=== PATIENT | male | born 1995 | race Caucasian/White ===

== ENCOUNTER 2025-05-13 08:49 | Outpatient (AMB) | payer BC, SELFPAY ==
--- NOTE | 2025-05-13 08:52 | A.OFFVIS_ITS ---
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 Patient was referred by Urgent care 02/24. At today's visit Patient states that since December he has had upper back pain that radiates into the neck, states no fall/injury's. Patient states that he has tried home exercises and massages but no physical therapy or injections. He added that he does have tingling into the right side of his neck. Biological Aide Required: Yes Biological Aide Services: Biological Aide Present Biological Aide Name: Margo [id number] [place] Allergies No Known Allergies Allergy (Verified 05/13/25 09:00) Medication List - Last Reconciled 05/13/25 by Pari White MD No Known Home Meds HPI Comments Details: Woke up in December with this pain. 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 He went to Urgent Care, xrays done to check neck per patient, says it was at [facility]. I don't have records of this. He was told it was normal. Points to lateral neck and upper trapezius areas. Denies pain to arms but reports tingling on armpit on right side. No numbness on arm or fingers. He had gone for massage therapy and was trying some exercises. Says pain is only when he is moving active, but gets relief as soon as he rests. 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 Patient was appropriately conversant and oriented. Good historian. MSK: Inspection reveals appropriate head and neck positioning. He says pain on upper trapezius bilateral but no trigger points palpated. Cervical ROM was full. Spurling's sign question positive left side? Bilateral shoulder, elbow and wrist ROM WNL. No ligamentous laxity or crepitan ce. No increased effusion. Reported right shoulder pain with right Jara sign. Negative empty can sign. Negative speed's test. Strength is 5/5 in all muscle groups tested. No increased tone noted. Neurological: MMT 5/5 throughout. Question depressed reflexes on left side? Ramires?s negative bilaterally. Babinski was down going bilaterally. Clonus was negative. Gait is non-antalgic without loss of balance. Vital Signs: BMI result Body Mass Index 25.2 Assessment & Plan Assessment & Plan (1) Upper back pain: Code(s): M54.9 - Dorsalgia, unspecified Category: Medical (2) Cervical radiculitis: Code(s): M54.12 - Radiculopathy, cervical region Category: Medical Plan Suspect myofascial pain particularly on upper trapezius. However some minor questionable findings on exam. We will send for repeat x-rays, particularly cervical and shoulder. Referring patient to physical therapy. Assessment and plan discussed with patient, and patient was agreeable. All questions were answered thoroughly. Follow up 2 months or sooner if needed. Pari White MD, DELON Board Certified, [place] [employer] and Rehabilitation (ABPMR) Board Certified, [place] [employer] Electrodiagnostic [employer] (ABEM) Orders: Orders XR shoulder RT min 2V Today M25.519 - Pain in unspecified shoulder PT Evaluation and Treatment Today M54.12 - Radiculopathy, cervical region, M54.9 - Dorsalgia, unspecified XR cervical spine 3V Today M54.2 - Cervicalgia XR shoulder LT min 2V Today M25.512 - Pain in left shoulder Coding Level of Care Code New Pt Level 4 (29504) Diagnoses Upper back pain M54.9 Cervical radiculitis M54.12
[2025-05-13 09:00] VITALS: BMI 25.2
== END 2025-05-13 09:41 | disposition home or self-care (01) ==
LOC: HO.HOS 08:49
PROVIDERS: Visit Provider Physical Medicine & Rehabilitation
DX: M54.9 Dorsalgia, unspecified (principal); M54.12 Radiculopathy, cervical region
CPT/HCPCS: 99203

== ENCOUNTER 2025-05-13 08:49 | Outpatient (REF) | payer BC, SELFPAY ==
--- NOTE | ~2025-05-13 | XR_ITS ---
EXAMINATION: XR CERVICAL SPINE CLINICAL INFORMATION: M54.2 - Cervicalgia COMPARISON: None available. TECHNIQUE: 3 views of the cervical spine were obtained. FINDINGS: There is tear drop shaped calcific density anterior to the dens, just inferior to the anterior C1 ring. The margin of the adjacent dens appears mildly scalloped. There is no soft tissue swelling in the prevertebral space. Vertebral body height and alignment is preserved. Disc spaces are preserved. 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 Electronically signed by: Ba Horne MD 05/13/2025 10:49 AM EDT
--- NOTE | ~2025-05-13 | XR_ITS ---
EXAMINATION: XR SHOULDER, LEFT CLINICAL INFORMATION: M25.512 - Pain in left shoulder COMPARISON: None available. TECHNIQUE: Two views of the left shoulder. FINDINGS: The bones and soft tissues are normal. No fracture. Glenohumeral and acromioclavicular alignment is anatomic with normal joint space. No abnormal soft tissue calcifications. XR/XR shoulder LT min 2V IMPRESSION: Unremarkable left shoulder. Electronically signed by: Ba Horne MD 05/13/2025 10:50 AM EDT
--- NOTE | ~2025-05-13 | XR_ITS ---
EXAMINATION: XR SHOULDER, RIGHT CLINICAL INFORMATION: M25.519 - Pain in unspecified shoulder COMPARISON: None available. TECHNIQUE: Two views of the right shoulder. FINDINGS: The bones and soft tissues are normal. No fracture. Glenohumeral and acromioclavicular alignment is anatomic with normal joint space. No abnormal soft tissue calcifications. XR/XR shoulder RT min 2V IMPRESSION: Unremarkable right shoulder Electronically signed by: Ba Horne MD 05/13/2025 10:46 AM EDT
== END 2025-05-13 08:50 | disposition home or self-care (01) ==
LOC: HO.HOSX 08:49
PROVIDERS: Visit Provider Physical Medicine & Rehabilitation
DX: M54.6 Pain in thoracic spine (principal); M25.512 Pain in left shoulder; M54.12 Radiculopathy, cervical region; M25.511 Pain in right shoulder
CPT/HCPCS: 72040; 73030

== ENCOUNTER → 2025-05-13 09:23 | Outpatient (BNV) | payer BC, SELFPAY | PROVIDERS: Visit Provider Radiology Diagnostic Radiology | DX: M54.2 Cervicalgia (principal); M25.511 Pain in right shoulder; M25.512 Pain in left shoulder | CPT/HCPCS: 72040; 73030 ==

== ENCOUNTER 2025-06-03 09:25 | Outpatient (AMB) | payer BC, SELFPAY ==
--- NOTE | 2025-06-03 09:29 | MHC.OFFVIS ---
Vital Signs 06/03/25 09:38 Height 5 ft 7 in Weight 160 lb BMI 25.1 Intake Visit Reasons: OV-B/L upper back pain Intake Note: Darvin is a 29 year old male who presents today as a follow up for his bilateral upper back pain. At last visit we referred him to physical therapy. At today's visit he states that the upper back pain is the same no changes to report. He states that the tingling pain is still radiating into the bilateral neck, and that for pain is now radiating into the right ear. Patient states that he starts physical therapy on 06/09/25. Embedded Firmware Developer Required: Yes Embedded Firmware Developer Services: Embedded Firmware Developer Present Embedded Firmware Developer Name: [id number]- [place] Allergies No Known Allergies Allergy (Verified 06/03/25 09:39) HPI Comments Details: Woke up in December with this pain. 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 He went to Urgent Care, xrays done to check neck per patient, says it was at [facility]. I don't have records of this. He was told it was normal. Points to lateral neck and upper trapezius areas. Denies pain to arms but reports tingling on armpit on right side. No numbness on arm or fingers. He had gone for massage therapy and was trying some exercises. Says pain is only when he is moving active, but gets relief as soon as he rests. Since the last visit, he reports pain nearly everyday, 5/10. He points to anterior neck, from below the jaw and occipitut, going from top to bottom. Denies radiation to extremities. Denies numbness on extremities but reports tingling in his armpits/under arms. Gait normal. No bladder/bowel incontinence. 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 Patient was appropriately conversant and oriented. Good historian. MSK: Inspection reveals appropriate head and neck positioning. He says pain on upper trapezius bilateral but no trigger points palpated. Cervical ROM was full. Spurling's sign negative. Bilateral shoulder, elbow and wrist ROM WNL. No ligamentous laxity or crepitance. No increased effusion. Negative empty can sign. Negative speed's test. Strength is 5/5 in all muscle groups tested. No increased tone noted. Neurological: MMT 5/5 throughout. Reflexes are intact and symmetric today. Ramires?s negative bilaterally. Babinski was down going bilaterally. Clonus was negative. Gait is non-antalgic without loss of balance. Vital Signs: BMI result Body Mass Index 25.1 Results Reviewed Results Reviewed: Reviewed xray cspine images with patients - findings on C1/dens? Ordering Physician: Pari Hamlin Date of Service: 05/13/25 Procedure(s): XR cervical spine 3V Accession Number(s): [id number] cc: Physician,None ; Pari Hamlin~ Reason for Exam: M54.2 - Cervicalgia EXAMINATION: XR CERVICAL SPINE CLINICAL INFORMATION: M54.2 - Cervicalgia COMPARISON: None available. TECHNIQUE: 3 views of the cervical spine were obtained. FINDINGS: There is tear drop shaped calcific density anterior to the dens, just inferior to the anterior C1 ring. The margin of the adjacent dens appears mildly scalloped. There is no soft tissue swelling in the prevertebral space. Vertebral body height and alignment is preserved. Disc spaces are preserved. 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 Electronically signed by: Ba Horne MD 05/13/2025 10:49 AM EDT Ordering Physician: Pari Hamlin Date of Service: 05/13/25 Procedure(s): XR shoulder RT min 2V Accession Number(s): [id number] cc: Physician,None ; Pari Hamlin~ Reason for Exam: M25.519 - Pain in unspecified shoulder EXAMINATION: XR SHOULDER, RIGHT CLINICAL INFORMATION: M25.519 - Pain in unspecified shoulder COMPARISON: None available. TECHNIQUE: Two views of the right shoulder. FINDINGS: The bones and soft tissues are normal. No fracture. Glenohumeral and acromioclavicular alignment is anatomic with normal joint space. No abnormal soft tissue calcifications. XR/XR shoulder RT min 2V IMPRESSION: Unremarkable right shoulder Electronically signed by: Ba Horne MD 05/13/2025 10:46 AM EDT RP Ordering Physician: Pari Hamlin Date of Service: 05/13/25 Procedure(s): XR shoulder LT min 2V Accession Number(s): [id number] cc: Physician,None ; Pari Hamlin~ Reason for Exam: M25.512 - Pain in left shoulder EXAMINATION: XR SHOULDER, LEFT CLINICAL INFORMATION: M25.512 - Pain in left shoulder COMPARISON: None available. TECHNIQUE: Two views of the left shoulder. FINDINGS: The bones and soft tissues are normal. No fracture. Glenohumeral and acromioclavicular alignment is anatomic with normal joint space. No abnormal soft tissue calcifications. XR/XR shoulder LT min 2V IMPRESSION: Unremarkable left shoulder. Electronically signed by: Ba Horne MD 05/13/2025 10:50 AM EDT RP Assessment & Plan Assessment & Plan (1) Chronic neck pain: Code(s): M54.2 - Cervicalgia; G89.29 - Other chronic pain Category: Medical (2) Abnormal x-ray: Code(s): R93.89 - Abnormal findings on diagnostic imaging of other specified body structures Category: Medical Plan Chronic neck pain, without signs of myelopathy or radiculopathy on exam today. Abnormal findings on cervical x-ray, honestly I am not sure what it means. Patient had undergone adequate conservative management without improvement of condition. It would be reasonable to obtain further imaging such as MRI. An MRI would help rule out any serious condition, guide treatment and assess prognosis for recovery. He is scheduled to start physical therapy next week. Assessment and plan discussed with patient, and patient was agreeable. All questions were answered thoroughly. Pari White MD, DELON Board Certified, [place] [employer] and Rehabilitation (ABPMR) Board Certified, [place] [employer] Electrodiagnostic [employer] (ABEM) Orders: Orders MR cervical spine wo con Today M54.12 - Radiculopathy, cervical region Coding Level of Care Code Est Pt Level 4 (96714) Diagnoses Chronic neck pain M54.2; G89.29 Abnormal x-ray R93.89
[2025-06-03 09:38] VITALS: BMI 25.1
--- OUTSIDE RECORDS SUMMARY | 2025-06-03 10:21 | XMS_ITS | Clinical Summary ---
Author Organization [facility] Address [address] [place] [address] Care Team Providers Care Welding Setter Name Role Phone Francisco Shavon PEREZ Primary Care Provider [phone] Source Comments PLEASE NOTE, if this patient is a minor, it may be UNLAWFUL to discuss sensitive information that is contained in these records (such as FAMILY PLANNING, MENTAL HEALTH or SUBSTANCE ABUSE) with the minor patient's parent or other person without the patient's specific authorization.[facility] Allergies No known active allergies Medications metoprolol succinate XL (TOPROL-XL) 25 mg 24 hr tablet Take 1 Tablet by mouth once daily for 180 days. 90 Tablet 1 05/26/20 25 026 Active naproxen (NAPROSYN) 500 mg tabletIndicati ons:Sore throat Take 1 Tablet by mouth 2 (two) times daily with a meal. 180 Tablet 02/27/20 25 025 Discontinued methocarbamoL (ROBAXIN) 750 mg tabletIndicati ons:Neck pain Take 1 Tablet by mouth every evening. 30 Tablet 04/16/20 25 025 Discontinued methocarbamoL (ROBAXIN) 750 mg tabletIndicati ons:Neck pain TAKE 1 TABLET BY MOUTH EVERY DAY IN THE EVENING 30 Tablet 05/13/20 25 025 Discontinued( erapy completed/Not needed) naproxen (NAPROSYN) 500 mg tabletIndicati ons:Sore throat TAKE 1 TABLET BY MOUTH TWICE A DAY WITH A MEAL 180 Tablet 05/24/20 25 025 Discontinued( erapy completed/Not needed) Active Problems No known active problems Encounters Date Type Department Care Team Description 05/26/2025 9:20 AM EDT Office Visit [address] [phone] Gilbert Nava MD [facility] 04/16/2025 4:20 PM EDT Office Visit [address] [phone] Child, CARMEN Casper Oksana 04/05/2025 1:00 PM EDT Office Visit [address] [phone] ChildTremayne PA-C from Last 3 Months Social History Tobacco Use Types Packs/Day Years Used Date Smoking Tobacco: Never Passive Smoke Exposure: Never Smokeless Tobacco: Never Tobacco Cessation:Counseling Given: Not Answered Alcohol Use Standard Drinks/Week Comments Never 0 (1 standard drink = 0.6 oz pur e alcohol) Sex and Gender Information Value Date Recorded Sex Assigned at Male 12/06/2024 9:59 PM PDT Legal Sex Male 11:15 AM PDT Gender Identity Male 12/06/2024 9:59 PM PDT Sexual Orientation Straight 12/06/2024 9: 59 PM PDT Last Filed Vital Signs Vital Sign Reading Time Taken Comments Blood Pressure 104/70 05/26/2025 9:29 AM EDT Pulse 63 05/26/2025 9:29 AM EDT Temperature 37.1 C (98.8 F) 05/26/2025 9:29 AM EDT Respiratory Rate 12 05/26/2025 9:29 AM EDT Oxygen Saturation 98% 05/26/2025 9:29 AM EDT Inhaled Oxygen Concentration - - Weight 73 kg (161 lb) 05/26/2025 9:29 AM EDT Height 172.7 cm (5' 8 ) 05/26/2025 9:29 AM EDT Body Mass Index 24.48 05/26/2025 9:29 AM EDT Plan of Treatment Upcoming Encounters Date Type Department Care Team (Late st Contact Info) Description 07/14/2025 2:40 PM EST Office Visit [address] [phone] Gilbert Nava MD [address] [place] [address] [place] [address] Health Maintenance Due Date Last Done Comments Imm-DTaP/Tdap/Td (1 - Tdap) 2014 Imm-Hepatitis B (1 of 3 - 19 + 3-dose series) 2014 Imm-HPV (1 - 3-dose SCDM series) 2022 [id number] ( season) 2025 Imm-Influenza (#1) 2025 Annual Wellness (Adult): Ind icated (All Coverage) 11/26/2025 11/26/2024 Anxiety Screening 11/26/2025 11/26/2024 Tobacco Screening 05/26/2026 05/26/2025 Hypertension Screening (#1) 05/25/2028 Alcohol and Drug Screen Completed 11/26/2024 Depression Annual Screen Completed 11/26/2024 HIV Screening Completed 04/05/2025, 11/26/2024 Hepatitis C Screening Completed 04/05/2025, 025 Procedures Procedure Name Priority Date/Time Associated Diagnosis Comments THYROID PANEL WITH TSH Routine 10:13 AM EDT Palpitations HEMOGLOBIN GLYCOSYLATED A1C Routine 04/05/2025 1:49 PM EDT Elevated blood sugar RHEUMATOID FACTOR QUANTITATIVE Routine 04/05/2025 1:46 PM EDT Neck pain Body aches HIV 1/2 AG & AB W/RFLX (4TH GEN) Routine 04/05/2025 1:46 PM EDT Neck pain Body aches ACUTE HEPATITIS PANEL W/RFLX Routine 04/05/2025 1:46 PM EDT Neck pain Body aches C-REACTIVE PROTEIN Routine 04/05/2025 1: 46 PM EDT Neck pain Body aches SEDIMENTATION RATE RBC AUTOMATED Routine 04/05/2025 1:46 PM EDT Neck pain Body aches BLOOD COUNT COMPLETE AUTOMATED Routine 04/05/2025 1:46 PM EDT Neck pain Body aches COMPREHENSIVE METABOLIC PANEL Routine 04/05/2025 1:46 PM EDT Neck pain Body aches from Last 3 Months Results * THYROID PANEL WITH TSH Routine (05/26/2025 10:13 AM EDT) T-3 UPTAKE 32 22 - 35 % 05/27/2025 6:46 PM EDT [facility] T-4 (THYROXINE), TOTAL 6.6 4.9 - 10.5 mcg/dL 05/27/2025 6:46 PM EDT [facility] FREE T4 INDEX (T7) 2.1 1.4 - 3.8 05/27/2025 6:46 PM EDT [facility] TSH 0.72 0.40 - 4.50 mIU/L 05/27/2025 3:26 PM EDT [facility] Blood Blood / Unknown 05/26/2025 1 0:13 AM EDT 05/27/2025 2:24 PM EDT Gilbert Nava MD LAB - BLOOD DRAW Final Result [facility] [address] [place] [id number], [facility] [address] [place] [phone] * HEMOGLOBIN GLYCOSYLATED A1C Routine (04/05/2025 1:49 PM EDT) HEMOGLOBIN A1C 5.3 <5.7 % 04/06/2025 3:07 AM EDT [facility] Blood Blood / Unknown 04/05/2025 1 :49 PM EDT 04/06/2025 1:44 AM EDT Narrative [facility] - 04/06/2025 3:12 AM EDT FASTING:YES For the purpose of screening for the presence of diabetes: . <5.7% Consistent with the absence of diabetes 5.7-6.4% Consistent with increased risk for diabetes (prediabetes) > or =6.5% Consistent with diabetes . This assay result is consistent with a decreased risk of diabetes. . Currently, no consensus exists regarding use of hemoglobin A1c for diagnosis of diabetes in children. . According to [place] [employer] Association (ADA) guidelines, hemoglobin A1c <7.0% represents optimal control in non- diabetic patients. Different metrics may apply to specific patient populations. Standards of Medical Care in Diabetes(ADA). . Justina KEN LAB - BLOOD DRAW Final Result Performing Organization Address [facility] Co de Phone Number [facility] [employer] [address] [address], [facility] [employer] [address] [address] * HIV 1/2 AG & AB W/RFLX (4TH GEN) Routine (04/05/2025 1:46 PM EDT) Pathologist [facility] HIV Screen Final SEE NOTE 04/06/2025 7:27 AM EDT [facility] HIV AG/AB, 4TH GEN NON-REACT CARLOS NON-REACT CARLOS 04/06/2025 7:27 AM EDT [facility] [employer] [facility] Blood Blood / Unknown 04/05/2025 1 :46 PM EDT 04/06/2025 5:53 AM EDT Narrative [employer] - 04/06/2025 7:48 AM EDT FASTING:YES HIV Negative . HIV-1 antigen and HIV-1/HIV-2 antibodies were not detected. There is no laboratory evidence of HIV infection. Tremayne Carpenter PA-C LAB - BLOOD DRAW Final Result Performing Organization Address [facility] Co de Phone Number [facility] [employer] [address] [address], [employer] [address] [address] * ACUTE HEPATITIS PANEL W/RFLX Routine (04/05/2025 1:46 PM EDT) Pathologist [facility] HEPATITIS A IGM ANTIBODY NON-REACT CARLOS NON-REACT CARLOS 04/06/2025 7:27 AM EDT [facility] HEPATITIS B SURFACE ANTIGEN NON-REACT CARLOS NON-REACT CARLOS 04/06/2025 7:27 AM EDT [facility] HEPATITIS B CORE IGM ANTIBODY NON-REACT CARLOS NON-REACT CARLOS 04/06/2025 7:27 AM EDT [facility] HEPATITIS C ANTIBODY NON-REACT CARLOS NON-REACT CARLOS 04/06/2025 7:27 AM EDT [facility] Blood Blood / Unknown 04/05/2025 1 :46 PM EDT 04/06/2025 5:51 AM EDT [email or web address] [facility] - 04/06/2025 7:48 AM EDT FASTING:YES . HCV antibody was non-reactive. There is no laboratory evidence of HCV infection. . In most cases, no further action is required. However, if recent HCV exposure is suspected, a test for HCV RNA (test code 04056) is suggested. . For additional information please refer to http://[employer]/faq/YLG25x7 (This link is being provided for informational/ educational purposes only.) . . For additional information, please refer to http://[employer]/faq/QDA585 (This link is being provided for informational/ educational purposes only.) . us Tremayne Carpenter PA-C LAB - BLOOD DRAW Final Result [facility] [employer] [address] [address], [employer] [address] [address] * RHEUMATOID FACTOR QUANTITATIVE Routine (04/05/2025 1:46 PM EDT) RHEUMATOID FACTOR <10 <14 IU/mL 04/06/2025 9:40 AM EDT [facility] Blood Blood / Unknown 04/05/2025 1 :46 PM EDT 04/06/2025 7:38 AM EDT [email or web address] [facility] - 04/06/2025 9:41 AM EDT FASTING:YES Tremayne Child PA-C LAB - BLOOD DRAW Final Result Performing Organization Address City/[facility]/ZIP Co de Phone Number [employer] [address] [address], [facility] [address] [address] * C-REACTIVE PROTEIN Routine (04/05/2025 1:46 PM EDT) C-REACTIVE PROTEIN <3.0 <8.0 mg/L 04/06/2025 9:40 AM EDT [facility] Blood Blood / Unknown 04/05/2025 1 :46 PM EDT 04/06/2025 7:38 AM EDT [email or web address] [facility] - 04/06/2025 9:41 AM EDT FASTING:YES Tremayne Carpenter PA-C LAB - BLOOD DRAW Final Result Performing Organization Address [facility] Co de Phone Number [employer] [address] [address], [facility] [address] [address] * SEDIMENTATION RATE RBC AUTOMATED Routine (04/05/2025 1:46 PM EDT) Pathologist [facility] SED RATE BY MODIFIED WESTERGREN 2 0 - 15 mm/h 04/06/2025 4:31 AM EDT [facility] Blood Blood / Unknown 04/05/2025 1 :46 PM EDT 04/06/2025 3:30 AM EDT [employer] [facility] - 04/06/2025 4:37 AM EDT FASTING:YES Tremayne Carpenter PA-C LAB - BLOOD DRAW Final Result Performing Organization Address [facility] de Phone Number [employer] [address] [address], [facility] [address] [address] * BLOOD COUNT COMPLETE AUTOMATED Routine (04/05/2025 1:46 PM EDT) Pathologist [facility] WHITE BLOOD CELL COUNT 6.0 3.8 - 10.8 Thousand/u L 04/06/2025 4:16 AM EDT [employer] [facility] RED BLOOD CELL COUNT 4.61 4.20 - 5.80 Million/uL 04/06/2025 4:16 AM EDT [employer] [facility] HEMOGLOBIN 14.1 13.2 - 17.1 g/dL 04/06/2025 4:16 AM EDT [employer] [facility] HEMATOCRIT 43.6 38.5 - 50.0 % 04/06/2025 4:16 AM EDT [employer] [facility] MCV 94.6 80.0 - 100.0 fL 04/06/2025 4:16 AM EDT [employer] [facility] MCH 30.6 27.0 - 33.0 pg 04/06/2025 4:16 AM EDT [facility] MCHC 32.3 32.0 - 36.0 g/dL 04/06/2025 4:16 AM EDT [employer] [facility] RDW 13.1 11.0 - 15.0 % 04/06/2025 4:16 AM EDT [employer] [facility] PLATELET COUNT 208 140 - 400 Thousand/u L 04/06/2025 4:16 AM EDT [employer] [facility] MPV 12.2 7.5 - 12.5 fL 04/06/2025 4:16 AM [employer] [facility] Blood Blood / Unknown 04/05/2025 1 :46 PM EDT 04/06/2025 2:23 AM EDT Narrative [facility] - 04/06/2025 4:27 AM EDT FASTING:YES For adults, a slight decrease in the calculated MCHC value (in the range of 30 to 32 g/dL) is most likely not clinically significant; however, it should be interpreted with caution in correlation with other red cell parameters and the patient's clinical condition. us Tremayne Carpenter PA-C LAB - BLOOD DRAW Final Result [employer] [facility] [address] [address], [facility] [employer] [facility] [address] [place] [address] * COMPREHENSIVE METABOLIC PANEL Routine (04/05/2025 1:46 PM EDT) [facility] GLUCOSE 91 65 - 99 mg/dL 04/06/2025 9:15 AM [facility] UREA NITROGEN (BUN) 24 7 - 25 mg/dL 04/06/2025 9:15 AM [facility] CREATININE (blood) 0.93 0.60 - 1.24 mg/dL 04/06/2025 9:15 AM [facility] EGFR 114 > OR = 60 mL/min/1. 73m2 04/06/2025 9:15 AM [facility] BUN/CREATININE RATIO SEE NOTE: 6 - 22 (calc) 04/06/2025 9:15 AM [facility] SODIUM 140 135 - 146 mmol/L 04/06/2025 9:15 AM [facility] POTASSIUM 4.4 3.5 - 5.3 mmol/L 04/06/2025 9:15 AM [facility] CHLORIDE 103 98 - 110 mmol/L 04/06/2025 9:15 AM [facility] CARBON DIOXIDE 28 20 - 32 mmol/L 04/06/2025 9:15 AM [facility] CALCIUM 9.8 8.6 - 10.3 mg/dL 04/06/2025 9:15 AM [facility] PROTEIN, TOTAL 7.2 6.1 - 8.1 g/dL 04/06/2025 9:15 AM [facility] ALBUMIN 5.0 3.6 - 5.1 g/dL 04/06/2025 9:15 AM [facility] GLOBULIN 2.2 1.9 - 3.7 g/dL (calc) 04/06/2025 9:15 AM [facility] ALBUMIN/GLOBULI N RATIO 2.3 1.0 - 2.5 (calc) 04/06/2025 9:15 AM [facility] BILIRUBIN, TOTAL 0.6 0.2 - 1.2 mg/dL 04/06/2025 9:15 AM [facility] ALKALINE PHOSPHATASE 45 36 - 130 U/L 04/06/2025 9:15 AM [facility] AST 14 10 - 40 U/L 04/06/2025 9:15 AM [employer] ALT 12 9 - 46 U/L 04/06/2025 9:15 AM EDT [facility] [employer] [facility] Blood Blood / Unknown 04/05/2025 1 :46 PM EDT 04/06/2025 7:38 AM EDT Narrative [facility] - 04/06/2025 9:39 AM EDT FASTING:YES . Fasting reference interval . Not Reported: BUN and Creatinine are within reference range. . 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
== END 2025-06-03 10:43 | disposition home or self-care (01) ==
LOC: HO.HOS 09:25
PROVIDERS: PCP Physician Assistant; Visit Provider Physical Medicine & Rehabilitation
DX: M54.2 Cervicalgia (principal); G89.29 Other chronic pain; R93.89 Abnormal findings on diagnostic imaging of other specified body structures
CPT/HCPCS: 99214

== ENCOUNTER → 2025-06-17 19:56 | Outpatient (BNV) | payer BC, SELFPAY | PROVIDERS: Visit Provider Radiology Diagnostic Radiology | DX: M54.12 Radiculopathy, cervical region (principal); M50.30 Other cervical disc degeneration, unspecified cervical region | CPT/HCPCS: 72141 ==

== ENCOUNTER 2025-06-17 19:57 | Outpatient (REF) | payer BC, SELFPAY ==
--- NOTE | ~2025-06-17 | MR_ITS ---
CLINICAL HISTORY: M54.12 - Radiculopathy, cervical region. Evaluate findings on xray on C1 dens MR Cervical Spine WO Contrast COMPARISON: DX/MD/SR - XR CERVICAL SPINE 2-3 VIEWS - 05/13/25 09:23 EDT FINDINGS: No acute fracture. Vertebrae are normally aligned. Normal spinal cord caliber and signal. Unremarkable soft tissues. Soft tissue calcification inferior to the anterior C1 ring seen on plain films is not well visualized on sagittal sequences and is not imaged on axial sequences. C2-C3: Mild disc desiccation. No disc herniation. No significant stenosis. C3-C4: Mild disc desiccation. No disc herniation. No significant stenosis. C4-C5: Disc desiccation and mild disc space narrowing. No disc herniation. No significant stenosis. C5-C6: No disc herniation. No significant stenosis. C6-C7: No disc herniation. No significant stenosis. C7-T1: No disc herniation. No significant stenosis. IMPRESSION: Mild degenerative changes. No spinal cord or nerve root impingement. Calcific density inferior to the anterior C1 ring seen on plain films is not well visualized. This document has been electronically signed by: Fernie Piña MD on 06/17/2025 21:14:37
--- OUTSIDE RECORDS SUMMARY | 2025-06-17 20:00 | XMS_ITS | Clinical Summary ---
Author Organization [facility] Address [address] [place] [address] Care Team Providers Care Swing Frame Grinder Operator Name Role Phone Francisco Shavon PEREZ Primary Care Provider [phone] Source Comments PLEASE NOTE, if this patient [...] Description 05/26/2025 9:20 AM EDT Office Visit [facility] [address] [place] [address] Gilbert Nava MD [place], Diana 04/16/2025 4:20 PM EDT Office Visit [address] [phone] Tremayne Carpenter PA-C JossgenetDebra lara 04/05/2025 1:00 PM EDT Office Visit [address] [phone] Tremayne Carpenter PA-C from Last 3 Months Social History [...] Description 07/14/2025 2:40 PM EST Office Visit [address] [phone] Gilbert Nava MD [address] [place] [address] [place] [address] Health Maintenance Due Date Last Done Comments Imm-DTaP/Tdap/Td (1 - Tdap) 2014 Imm-Hepatitis B (1 of 3 - 19 + 3-dose series) 2014 Imm-HPV (1 - 3-dose SCDM series) 2022 Fxy-KVWCL-53 ( - season) 2025 Imm-Influenza (#1) 2025 Annual Wellness (Adult): Ind icated (All Coverage) 11/26/2025 11/26/2024 Anxiety Screening 11/26/2025 11/26/2024 Tobacco Screening 05/26/2026 05/26/2025 Hypertension Screening (#1) 05/25/2028 Alcohol and Drug Screen Completed 11/26/2024 Depression Annual Screen Completed 11/26/2024 HIV Screening Completed 04/05/2025, 11/26/2024 Hepatitis C Screening Completed 04/05/2025, 025 Procedures Procedure Name Priority Date/Time Associated Diagnosis Comments REFERRAL SCANNED DOCUMENT 06/03/2025 3:00 AM EDT THYROID PANEL WITH TSH Routine 10:13 AM [...] aches from Last 3 Months Results * REFERRAL SCANNED DOCUMENT (06/03/2025 3:00 AM EDT) 06/03/2025 3:00 AM EDT Shavon Singh DAIRY CHEMIST SCAN REFERRAL Final Result * THYROID PANEL WITH TSH Routine (05/26/2025 10:13 AM EDT) T-3 UPTAKE 32 22 - 35 % 05/27/2025 6:46 PM EDT [facility] T-4 (THYROXINE), TOTAL 6.6 4.9 - 10.5 mcg/dL 05/27/2025 6:46 PM EDT [facility] FREE T4 INDEX (T7) 2.1 1.4 - 3.8 05/27/2025 6:46 PM EDT [facility] TSH 0.72 0.40 - 4.50 mIU/L 05/27/2025 3:26 PM EDT [facility] Blood Blood / Unknown 05/26/2025 1 0:13 AM EDT 05/27/2025 2:24 PM EDT Gilbert Nava MD LAB - BLOOD DRAW Final Result [facility] [employer] [address] [place] [address], [facility] [address] [place] [phone] * HEMOGLOBIN GLYCOSYLATED A1C Routine (04/05/2025 1:49 PM EDT) HEMOGLOBIN A1C 5.3 <5.7 % 04/06/2025 3:07 AM EDT [facility] Blood Blood / Unknown 04/05/2025 1 :49 PM EDT 04/06/2025 1:44 AM EDT Narrative [facility] - 04/06/2025 3:12 AM EDT FASTING:YES For [...] of diabetes in children. . According to [place] [employer] (ADA) guidelines, hemoglobin A1c <7.0% represents optimal control in non- diabetic patients. Different metrics may apply to specific patient populations. Standards of Medical Care in Diabetes(ADA). . Justina KEN LAB - BLOOD DRAW Final Result Performing Organization Address [facility] Co de Phone Number [facility] [employer] [address] [place] [address], [employer] [address] [address] * HIV 1/2 AG & AB W/RFLX (4TH GEN) Routine (04/05/2025 1:46 PM EDT) Pathologist [facility] HIV Screen Final SEE NOTE 04/06/2025 7:27 AM EDT [facility] HIV AG/AB, 4TH GEN NON-REACT CARLOS NON-REACT CARLOS 04/06/2025 7:27 AM EDT [facility] Blood Blood / Unknown 04/05/2025 1 :46 PM EDT 04/06/2025 5:53 AM EDT [facility] [employer] [employer] - 04/06/2025 7:48 AM EDT FASTING:YES HIV Negative . HIV-1 antigen and HIV-1/HIV-2 antibodies were not detected. There is no laboratory evidence of HIV infection. Tremayne Carpenter PA-C LAB - BLOOD DRAW Final Result Performing Organization Address [facility] Co de Phone Number [facility] [address] [address], [employer] [address] [address] * ACUTE HEPATITIS PANEL W/RFLX Routine (04/05/2025 1:46 PM EDT) HEPATITIS A IGM ANTIBODY NON-REACT CARLOS NON-REACT CARLOS 04/06/2025 7:27 AM EDT [facility] HEPATITIS B SURFACE ANTIGEN NON-REACT CARLOS NON-REACT CARLOS 04/06/2025 7:27 AM EDT [facility] HEPATITIS B CORE IGM ANTIBODY NON-REACT CARLOS NON-REACT CARLOS 04/06/2025 7:27 AM EDT [facility] HEPATITIS C ANTIBODY NON-REACT CARLOS NON-REACT CARLOS 04/06/2025 7:27 AM EDT [facility] Blood Blood / Unknown 04/05/2025 1 :46 PM EDT 04/06/2025 5:51 AM EDT Narrative [facility] - 04/06/2025 7:48 AM EDT FASTING:YES . HCV antibody was non-reactive. There is no laboratory evidence of HCV infection. . In most cases, no further action is required. However, if recent HCV exposure is suspected, a test for HCV RNA (test code 04922) is suggested. . For additional information please refer to http://education.Zolpy/faq/JNC20m5 (This link is being provided for informational/ educational purposes only.) . . For additional information, please refer to http://Pikimal.Videobot.Sure Chill/faq/RIW586 (This link is being provided for informational/ educational purposes only.) . [facility] PA-C LAB - BLOOD DRAW Final Result [facility] [address] [address], [facility] [address] [address] * RHEUMATOID FACTOR QUANTITATIVE Routine (04/05/2025 1:46 PM EDT) Pathologist [facility] RHEUMATOID FACTOR <10 <14 IU/mL 04/06/2025 9:40 AM EDT [facility] Blood Blood / Unknown 04/05/2025 1 :46 PM EDT 04/06/2025 7:38 AM EDT [facility] - 04/06/2025 9:41 AM EDT FASTING:YES us Casper Child PA-C LAB - BLOOD DRAW Final Result Performing Organization Address [facility]/ZIP Co de Phone Number [facility] [address] [address], [employer] [address] [address] * C-REACTIVE PROTEIN Routine (04/05/2025 1:46 PM EDT) C-REACTIVE PROTEIN <3.0 <8.0 mg/L 04/06/2025 9:40 AM EDT [facility] Blood Blood / Unknown 04/05/2025 1 :46 PM EDT 04/06/2025 7:38 AM EDT [facility] [place] [employer] - 04/06/2025 9:41 AM EDT FASTING:YES Tremayne Carpenter PA-C LAB - BLOOD DRAW Final Result Performing Organization Address [facility]/[place] de Phone Number [facility] [address] [address], [employer] [address] [phone] * SEDIMENTATION RATE RBC AUTOMATED Routine (04/05/2025 1:46 PM EDT) SED RATE BY MODIFIED REJIERGREN 2 0 - 15 mm/h 04/06/2025 4:31 AM EDT [facility] Blood Blood / Unknown 04/05/2025 1 :46 PM EDT 04/06/2025 3:30 AM EDT [facility] - 04/06/2025 4:37 AM EDT FASTING:YES us Tremayne Carpenter PA-C LAB - BLOOD DRAW Final Result Performing Organization Address [facility] de Phone Number [facility] [address] [address], [place] [address] [address] * BLOOD COUNT COMPLETE AUTOMATED Routine (04/05/2025 1:46 PM EDT) WHITE BLOOD CELL COUNT 6.0 3.8 - 10.8 Thousand/u L 04/06/2025 4:16 AM EDT [facility] RED BLOOD CELL COUNT 4.61 4.20 - 5.80 Million/uL 04/06/2025 4:16 AM EDT [facility] HEMOGLOBIN 14.1 13.2 - 17.1 g/dL 04/06/2025 4:16 AM EDT [facility] HEMATOCRIT 43.6 38.5 - 50.0 % 04/06/2025 4:16 AM EDT [facility] MCV 94.6 80.0 - 100.0 fL 04/06/2025 4:16 AM EDT [facility] MCH 30.6 27.0 - 33.0 pg 04/06/2025 4:16 AM EDT [facility] MCHC 32.3 32.0 - 36.0 g/dL 04/06/2025 4:16 AM EDT [facility] RDW 13.1 11.0 - 15.0 % 04/06/2025 4:16 AM EDT [facility] PLATELET COUNT 208 140 - 400 Thousand/u L 04/06/2025 4:16 AM EDT [facility] MPV 12.2 7.5 - 12.5 fL 04/06/2025 4:16 AM IO [employer] [facility] Blood Blood / Unknown 04/05/2025 1 :46 PM EDT 04/06/2025 2:23 AM EDT Narrative [facility] - 04/06/2025 4:27 AM EDT FASTING:YES For adults, a slight decrease in the calculated MCHC value (in the range of 30 to 32 g/dL) is most likely not clinically significant; however, it should be interpreted with caution in correlation with other red cell parameters and the patient's clinical condition. Tremayne Carpenter PA-C LAB - BLOOD DRAW Final Result [facility] [address] [address], [facility] [address] [address] * COMPREHENSIVE METABOLIC PANEL Routine (04/05/2025 1:46 PM EDT) [facility] GLUCOSE 91 65 - 99 mg/dL 04/06/2025 9:15 AM [facility]chut[facility] UREA NITROGEN (BUN) 24 7 - 25 mg/dL 04/06/2025 9:15 AM [facility] CREATININE (blood) 0.93 0.60 - 1.24 mg/dL 04/06/2025 9:15 AM [employer]Webchutney [facility] EGFR 114 > OR = 60 mL/min/1. 73m2 04/06/2025 9:15 AM [facility] BUN/CREATININE RATIO SEE NOTE: 6 - 22 (calc) 04/06/2025 9:15 AM [facility] SODIUM 140 135 - 146 mmol/L 04/06/2025 9:15 AM [facility] POTASSIUM 4.4 3.5 - 5.3 mmol/L 04/06/2025 9:15 AM [facility] CHLORIDE 103 98 - 110 mmol/L 04/06/2025 9:15 AM [facility] CARBON DIOXIDE 28 20 - 32 mmol/L 04/06/2025 9:15 AM [facility] CALCIUM 9.8 8.6 - 10.3 mg/dL 04/06/2025 9:15 AM [facility] PROTEIN, TOTAL 7.2 6.1 - 8.1 g/dL 04/06/2025 9:15 AM [facility] ALBUMIN 5.0 3.6 - 5.1 g/dL 04/06/2025 9:15 AM [facility] GLOBULIN 2.2 1.9 - 3.7 g/dL (calc) 04/06/2025 9:15 AM [facility] ALBUMIN/GLOBULI N RATIO 2.3 1.0 - 2.5 (calc) 04/06/2025 9:15 AM [facility] BILIRUBIN, TOTAL 0.6 0.2 - 1.2 mg/dL 04/06/2025 9:15 AM [facility] ALKALINE PHOSPHATASE 45 36 - 130 U/L 04/06/2025 9:15 AM EDT [facility] AST 14 10 - 40 U/L 04/06/2025 9:15 AM EDT [facility] ALT 12 9 - 46 U/L 04/06/2025 9:15 AM EDT [facility] Blood Blood / Unknown 04/05/2025 1 :46 PM EDT 04/06/2025 7:38 AM EDT Narrative [facility] - 04/06/2025 9:39 AM EDT FASTING:YES . Fasting reference interval . Not Reported: BUN and Creatinine are within reference range. . 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
== END 2025-06-17 19:58 | disposition home or self-care (01) ==
LOC: HO.MRI 19:57
PROVIDERS: Visit Provider Physical Medicine & Rehabilitation
DX: M54.12 Radiculopathy, cervical region (principal)
CPT/HCPCS: 72141

== ENCOUNTER 2025-07-16 09:44 | Outpatient (AMB) | payer BC, SELFPAY ==
--- OUTSIDE RECORDS SUMMARY | 2025-07-14 14:40 | XMS_ITS | Encounter Summary ---
Author Organization [facility] Address [address] [place] [address] Care Team Providers Care Finishing Range Feeder Name Role Phone Shavon Singh CHRIS Primary Care Provider [phone] Reason for Visit * Reason Comments Follow Up Cardiology Encounter Details Date Type Department Care Team ([facility] Contact Info) Description 07/14/2025 2:40 PM EST Office Visit [facility] [address] [phone] Gilbert Nava MD [address] [place] [address] [place] [address] Social History Tobacco Use Types Packs/Day Years [...] Orientation Straight 12/06/2024 9: 59 PM PDT documented as of this encounter Last Filed Vital Signs Vital Sign Reading Time Taken Comments Blood Pressure 120/80 07/14/2025 3:14 PM EST Pulse 84 07/14/2025 3:14 PM EST Temperature 37.2 C (99 F) 07/14/2025 3:14 PM EST Respiratory Rate 16 07/14/2025 3:14 PM EST Oxygen Saturation - - Inhaled Oxygen Concentration - - Weight 75.8 kg (167 lb) 07/14/2025 3:14 PM EST Height 172.7 cm (5' 8 ) 07/14/2025 3:14 PM EST Body Mass Index 25.39 07/14/2025 3:14 PM EST documented in this encounter Progress Notes * Gilbert Nava MD - 07/14/2025 2:40 PM EST Wilfredo Interiano is a 29 year old, Citizen Of [place]-speaking male who presents today for an cardiology visit with Gilbert Nava MD. Referred by CARMEN Santoyo ([place]gian/Citizen [place]) interpreted for today's visit. is present and assisting with interpretation during this in-person visit. HPI: (07/14/2025): Mr. ZUNIGA is doing well. He on his has also started taking Magnesium 250 mg a day and has decreased his metoprolol succinate to every other day and feels significant decrease in palpitations and no longer chest discomfort. He offers no new complaints. (05/26/2025): Mr. ZUNIGA comes for his f/u and continues to have same symptoms. He is not under as muchstress as before. He does admit of feeling more warm compared to other people in his room. No chestpains or presyncope or syncope, or shortness of breath. (01/27/2025): Mr. Darvin Interiano (EFRAIN) is pleasant 29y/o man of Uk[place]ian decent, who has been referred to see me for his cardiac evaluation. He tells me that he has been experiencing irregular heart beat feeling on and off for past 4+ years, lasting for few seconds, with no aggravating or relieving factors. Over the past 4+ years these feelings have slightly increased in frequency from 3-4 times a month to now 8-10 times a month. There is no associated feeling of chest discomfort, lightheadedness, dizziness or syncope or diaphoresis but he does feel that he may be momentarily little short of breath. While in [facility], when he had such feelings, he had echocardiogram done and was reported to be normal. 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 He does not smoke, has much intake of caffeine containing beverages, coffee, tear, alcohol intake. His appetite is good and his bowels agile scrum master normal and so also is his sleep. There is no hx of HTN, DM, smoking, dyslipidemia or family hx of premature CAD. There isno hx of heart murmur, rheumatic fever, enlarged heart. Once we was seen at [facility] in [place] and testing done then was unremarkable. Review of Systems: Denies any fever, chills, rash, cough, bleeding issues, heat or cold intolreance, BRBPR or melena. Past Medical & Surgical History: Not contributory. Allergies: NKA Family History: Not contributory. Medications: Current Outpatient Medications Medication Sig Dispense Refill ??? magnesium oxide 250 mg magnesium tab Take 400 mg by mouth once daily. ??? metoprolol succinate XL (TOPROL-XL) 25 mg 24 hr tablet Take 1 Tablet by mouth every other day for 180 days. 45 Tablet 1 No current facility-administered medications for this visit. Physical Examination: Vitals: 07/14/25 1514 BP: 120/80 BP Site: Left Arm BP Position: Sitting BP Cuff Size: Large Adult Pulse: 84 Resp: 16 Temp: 99 ??F (37.2 ??C) TempSrc: Oral Weight: 167 lb (75.8 kg) Height: 5' 8 (1.727 m) BP 120/80 at 07/14/2025 3:14 PM BP 104/70 at 05/26/2025 9:29 AM BP 136/83 at 04/16/2025 4:19 PM Wt Readings from Last 3 Encounters: 07/14/25 167 lb (75.8 kg) 05/26/25 161 lb (73 kg) 04/16/25 159 lb 3.2 oz (72.2 kg) GENERAL: Patient is awake, alert, fully oriented, and in NAD. HEENT: NC/AT, conjunctiva is pink, sclera is non icteric, neck is supple, trachea is midline, no thyromegaly, no JVD, carotids have good upstroke without bruits. CHEST: Lungs are clear to auscultation. HEART: PMI is not displaced, S1 and S2 are normal, No gallops are present 1/6 CB present along the left sternal border. ABDOMEN: Soft, supple, non tender and no organomegaly appreciated. EXTREMITIES: No edema or cyanosis and 1+ pedal pulses. He did have some fine tremors of both his fingers and hands. The ASCVD Risk score (Margoth YA, et al., 2019) failed to calculate for the following reasons: The 2019 ASCVD risk score is only valid for ages 40 to 79 Estimated Creatinine Clearance: 113.9 mL/min (by C-G formula based on SCr of 0.93 mg/dL). Lab Results Component Value Date HGBA1C 5.3 04/05/2025 Lab Results Component Value Date BUN 24 04/05/2025 CREATININE 0.93 04/05/2025 EGFR 114 04/05/2025 BUNCREAT SEE NOTE: 04/05/2025 NA 140 04/05/2025 K 4.4 04/05/2025 CHLORIDE 103 04/05/2025 CO2 28 04/05/2025 CALCIUM 9.8 04/05/2025 PROTEIN 7.2 04/05/2025 ALBUMIN 5.0 04/05/2025 GLOBULIN 2.2 04/05/2025 BILIRUBIN 0.6 04/05/2025 ALKPHOS 45 04/05/2025 Lab Results Component Value Date WBC 6.0 04/05/2025 RBC 4.61 04/05/2025 HGB 14.1 04/05/2025 HCT 43.6 04/05/2025 MCV 94.6 04/05/2025 MCH 30.6 04/05/2025 MCHC 32.3 04/05/2025 RDW 13.1 04/05/2025 PLATELETS 208 04/05/2025 MPV 12.2 04/05/2025 NEUTROPHILS 3,078 11/26/2024 LYMPHOCYTES 1,017 11/26/2024 MONOCYTES 302 11/26/2024 EOSINOPHILS 72 11/26/2024 BASOPHILS 32 11/26/2024 GLUCOSE 91 04/05/2025 Lab Results Component Value Date TRIGLYC 113 11/26/2024 CHOL 174 11/26/2024 HDL 58 11/26/2024 LDL 95 11/26/2024 CHOLHDL 3.0 11/26/2024 NONHDL 116 11/26/2024 ALT 12 04/05/2025 AST 14 04/05/2025 Lab Results Component Value Date TSH 0.72 05/26/2025 T4 6.6 05/26/2025 ECG: (01/27/2025): SR at 71 bpm and is grossly WNL. ASSESSMENT & PLAN: (07/14/2025): No changes have been made in his meds and he was told to see how he feels off his metoprolol and if he feels well and no longer palpitations bother him, then he can stop taking this. Will see him in 01/2026. (05/26/2025); Have ordered thyroid test to r/o hyperthyroidism and also started him on metoprolol succinate 25mg once a day and will see him in a month. (01/27/2025): Mr. ZUNIGA has symptoms of irregular heart beat intermittently lasting for few seconds with no other significant associated findings. His physical exam from cardiac perspective appears to be grossly WNL. I have suggested him to increase fluid intake, practice meditation, minimize stress in his life and see how he does. I have asked him see me in 3-4 months or sooner if symptoms worsen. documented in this encounter Plan of Treatment Not on file documented as of this encounter Visit Diagnoses Diagnosis Palpitations- Primary documented in this encounter Additional Health Concerns Assessment Noted Time PHQ-9 Depression Total Score: 0 11/27/19 9:40 AM PDT A Depression follow-up plan has been documented for the patient 12/07/2024 12:59 AM PDT PHQ-2 Depression Total Score: 0 11/27/19 9:40 AM PDT documented as of this encounter Care Teams Finishing Range Feeder Relationship Specialty Start Date End Date Shavon Singh FNP [facility] [place] [address] PCP - General Family Medicine, GEOSPATIAL IMAGE ANALYST 05/10/25 documented as of this encounter
--- NOTE | 2025-07-16 09:46 | MHC.OFFVIS ---
Vital Signs 07/16/25 09:49 Height 5 ft 7 in Weight 160 lb BMI 25.1 Intake Visit Reasons: OV-B/L upper back MRI 06/17/25 Intake Note: Darvin is a 29 year old male who presents today as a MRI Review of his bilateral upper back, 06/17/25. Patient states that since last visit he is feeling a little bit better. Fence Installer Helper Required: Yes Fence Installer Helper Services: Fence Installer Helper Present Fence Installer Helper Name: Charly Thao [id number] Allergies No Known Allergies Allergy (Verified 06/03/25 09:39) Medication List - Last Reconciled 07/16/25 by Pari White MD No Known Home Meds HPI Comments Details: Woke up in December with this pain. 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 He went to Urgent Care, xrays done to check neck per patient, says it was at [facility]. I don't have records of this. He was told it was normal. Points to lateral neck and upper trapezius areas. Denies pain to arms but reports tingling on armpit on right side. No numbness on arm or fingers. He had gone for massage therapy and was trying some exercises. Says pain is only when he is moving active, but gets relief as soon as he rests. Since the last visit, pain score 3/10, no pain right now. It appears sometimes only, usually anterior neck, pointing to SCM muscles, sometimes to right ear. Denies posterior neck. Denies radiation to extremities. Denies numbness on extremities but reports tingling in his armpits/under arms. Gait normal. No bladder/bowel incontinence. MRI cspine looks good, no spinal stenosis or disc herniation, no mention of any calcification on the dens. He has discussed this with PCP, thyroid tests and all blood tests were normal per patient. He says no issues of high BP. 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 Patient was appropriately conversant and oriented. Good historian. MSK: Inspection reveals appropriate head and neck positioning. No tenderness in SCM or upper trapezius today. Cervical ROM was full. Spurling's sign negative. Bilateral shoulder, elbow and wrist ROM WNL. No ligamentous laxity or crepitance. No increased effusion. Neurological: MMT 5/5 throughout. Reflexes are intact and symmetric today. Ramires?s negative bilaterally. Babinski was down going bilaterally. Clonus was negative. Gait is non-antalgic without loss of balance. Vital Signs: BMI result Body Mass Index 25.1 Results Reviewed Results Reviewed: Ordering Physician: Pari Hamlin Date of Service: 06/17/25 Procedure(s): MR cervical spine wo con Accession Number(s): [id number] cc: Physician,Unknown ; Pari Hamlin~ Reason for Exam: M54.12 - Radiculopathy, cervical region CLINICAL HISTORY: M54.12 - Radiculopathy, cervical region. Evaluate findings on xray on C1 dens MR Cervical Spine WO Contrast COMPARISON: DX/VA/SR - XR CERVICAL SPINE 2-3 VIEWS - 05/13/25 09:23 EDT FINDINGS: No acute fracture. Vertebrae are normally aligned. Normal spinal cord caliber and signal. Unremarkable soft tissues. Soft tissue calcification inferior to the anterior C1 ring seen on plain films is not well visualized on sagittal sequences and is not imaged on axial sequences. C2-C3: Mild disc desiccation. No disc herniation. No significant stenosis. C3-C4: Mild disc desiccation. No disc herniation. No significant stenosis. C4-C5: Disc desiccation and mild disc space narrowing. No disc herniation. No significant stenosis. C5-C6: No disc herniation. No significant stenosis. C6-C7: No disc herniation. No significant stenosis. C7-T1: No disc herniation. No significant stenosis. IMPRESSION: Mild degenerative changes. No spinal cord or nerve root impingement. Calcific density inferior to the anterior C1 ring seen on plain films is not well visualized. This document has been electronically signed by: Fernie Piña MD on 06/17/2025 21:14:37 Ordering Physician: Pari Hamlin Date of Service: 05/13/25 Procedure(s): XR cervical spine 3V Accession Number(s): [id number] cc: Physician,None ; Pari Hamlin~ Reason for Exam: M54.2 - Cervicalgia EXAMINATION: XR CERVICAL SPINE CLINICAL INFORMATION: M54.2 - Cervicalgia COMPARISON: None available. TECHNIQUE: 3 views of the cervical spine were obtained. FINDINGS: There is tear drop shaped calcific density anterior to the dens, just inferior to the anterior C1 ring. The margin of the adjacent dens appears mildly scalloped. There is no soft tissue swelling in the prevertebral space. Vertebral body height and alignment is preserved. Disc spaces are preserved. 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 Electronically signed by: Ba Horne MD 05/13/2025 10:49 AM EDT Ordering Physician: Pari Hamlin Date of Service: 05/13/25 Procedure(s): XR shoulder RT min 2V Accession Number(s): [id number] cc: Physician,None ; Pari Hamlin~ Reason for Exam: M25.519 - Pain in unspecified shoulder EXAMINATION: XR SHOULDER, RIGHT CLINICAL INFORMATION: M25.519 - Pain in unspecified shoulder COMPARISON: None available. TECHNIQUE: Two views of the right shoulder. FINDINGS: The bones and soft tissues are normal. No fracture. Glenohumeral and acromioclavicular alignment is anatomic with normal joint space. No abnormal soft tissue calcifications. XR/XR shoulder RT min 2V IMPRESSION: Unremarkable right shoulder Electronically signed by: Ba Horne MD 05/13/2025 10:46 AM EDT Ordering Physician: Pari Hamlin Date of Service: 05/13/25 Procedure(s): XR shoulder LT min 2V Accession Number(s): [id number] cc: Physician,None ; Pari Hamlin~ Reason for Exam: M25.512 - Pain in left shoulder EXAMINATION: XR SHOULDER, LEFT CLINICAL INFORMATION: M25.512 - Pain in left shoulder COMPARISON: None available. TECHNIQUE: Two views of the left shoulder. FINDINGS: The bones and soft tissues are normal. No fracture. Glenohumeral and acromioclavicular alignment is anatomic with normal joint space. No abnormal soft tissue calcifications. XR/XR shoulder LT min 2V IMPRESSION: Unremarkable left shoulder. Electronically signed by: Ba Horne MD 05/13/2025 10:50 AM EDT RP Assessment & Plan Assessment & Plan (1) Anterior neck pain: Code(s): M54.2 - Cervicalgia Category: Medical Plan From physiatry point of view, there is no musculoskeletal condition to explain symptoms. Cervical MRI essentially looks good without any significant disc herniation or spinal stenosis. There is no tenderness over upper trapezius or SCM. There is no signs of cervical myelopathy or radiculopathy on exam. Patient continues to complain of anterior neck pain but this is not daily anymore. We will refer back to PCP for further evaluation. Assessment and plan discussed with patient, and patient was agreeable. All questions were answered thoroughly. Pari White MD, DELON Board Certified, [place] Board [employer] Physical Medicine and Rehabilitation (ABPMR) Board Certified, [place] Board of Electrodiagnostic Medicine (ABEM) Coding Level of Care Code Est Pt Level 3 (86173) Diagnoses Anterior neck pain M54.2
[2025-07-16 09:49] VITALS: BMI 25.1
--- OUTSIDE RECORDS SUMMARY | 2025-07-16 10:56 | XMS_ITS | Clinical Summary ---
Author Organization [facility] Address [address] [place] [address] Care Team Providers Care Rack Maker Name Role Phone Shavon Singh CHRIS Primary Care Provider Source Comments PLEASE NOTE, if this patient is a minor, it may be UNLAWFUL to discuss sensitive information that is contained in these records (such as FAMILY PLANNING, MENTAL HEALTH or SUBSTANCE ABUSE) with the minor patient's parent or other person without the patient's specific authorization.[facility] Allergies No known active allergies Medications magnesium oxide 250 mg magnesium tab Take 400 mg by mouth once daily. Active metoprolol succinate XL (TOPROL-XL) 25 mg 24 hr tablet Take 1 Tablet by mouth every other day for 180 days. 45 Tablet 1 5 01/11/20 26 Active metoprolol succinate XL (TOPROL-XL) 25 mg 24 hr tablet Take 1 Tablet by mouth once daily for 180 days. 90 Tablet 1 5 07/14/20 25 Discontinu ed(Quantit y/Dosage and/or Sig change) Active Problems No known active problems Encounters Date Type Department Care Team Description 07/14/2025 2:40 PM EST Office Visit [address] [address] Gilbert Nava MD [place], Diana 05/26/2025 9:20 AM EDT Office Visit [address] [address] Gilbert Nava MD [place], Diana 04/16/2025 4:20 PM EDT Office Visit [address] [address] Child, CARMEN Casper Oksana from Last 3 Months Social History Tobacco [...] 16 07/14/2025 3:14 PM EST Oxygen Saturation 98% 05/26/2025 9:29 AM EDT Inhaled Oxygen Concentration - - Weight 75.8 kg (167 lb) 07/14/2025 3:14 PM EST Height 172.7 cm (5' 8 ) 07/14/2025 3:14 PM EST Body Mass Index 25.39 07/14/2025 3:14 PM EST Plan of Treatment Health Maintenance Due Date Last Done Comments Imm-DTaP/Tdap/Td (1 - Tdap) 2014 Imm-Hepatitis B (1 of 3 - 19 + 3-dose series) 2014 Imm-HPV (1 - 3-dose SCDM series) 2022 [id number] ( season) 2025 Imm-Influenza (#1) 2025 Annual Wellness (Adult): Ind icated (All Coverage) 11/26/2025 11/26/2024 Anxiety Screening 11/26/2025 11/26/2024 Hypertension Screening (#1) 07/14/2026 Tobacco Screening 07/14/2026 07/14/2025 Alcohol and Drug Screen Completed 11/26/2024 Depression Annual Screen Completed 11/26/2024 HIV Screening Completed 04/05/2025, 11/26/2024 Hepatitis C Screening Completed 04/05/2025, 025 Procedures Procedure Name Priority Date/Time Associated Diagnosis Comments REFERRAL SCANNED DOCUMENT 06/03/2025 3:00 AM EDT THYROID PANEL WITH TSH Routine 05/26/2025 10:13 AM EDT Palpitations HIV 1/2 AG & AB W/RFLX (4TH GEN) Routine 04/05/2025 1:46 PM EDT Neck pain Body aches ACUTE HEPATITIS PANEL W/RFLX Routine 04/05/2025 1:46 PM EDT Neck pain Body aches from Last 3 Months or Most Recently Relevant to Health Maintenance Results * REFERRAL SCANNED DOCUMENT (06/03/2025 3:00 AM EDT) 06/03/2025 3:00 AM EDT us Shavon Singh ACADEMIC ASSOCIATE SCAN REFERRAL Final Result * THYROID PANEL WITH TSH Routine (05/26/2025 10:13 AM EDT) T-3 UPTAKE 32 22 - 35 % 05/27/2025 6:46 PM EDT [facility] T-4 (THYROXINE), TOTAL 6.6 4.9 - 10.5 mcg/dL 05/27/2025 6:46 PM EDT [facility] FREE T4 INDEX (T7) 2.1 1.4 - 3.8 05/27/2025 6:46 PM EDT [facility] TSH 0.72 0.40 - 4.50 mIU/L 05/27/2025 3:26 PM EDT [facility] Blood Blood / Unknown 05/26/2025 1 0:13 AM EDT 05/27/2025 2:24 PM EDT Gilbert Nava MD LAB - BLOOD DRAW Final Result [facility] [address] [address], [facility] [address] [address] * HIV 1/2 AG & AB W/RFLX (4TH GEN) Routine (04/05/2025 1:46 PM EDT) HIV Screen Final SEE NOTE 04/06/2025 7:27 AM EDT [facility] HIV AG/AB, 4TH GEN NON-REACT CARLOS NON-REACT CARLOS 04/06/2025 7:27 AM EDT [facility] Blood Blood / Unknown 04/05/2025 1 :46 PM EDT 04/06/2025 5:53 AM EDT [employer] - 04/06/2025 7:48 AM EDT FASTING:YES HIV Negative . HIV-1 antigen and HIV-1/HIV-2 antibodies were not detected. There is no laboratory evidence of HIV infection. [facility] LAB - BLOOD DRAW Final Result [employer] [facility] [address] [address], [employer] [address] [address] * ACUTE HEPATITIS PANEL W/RFLX Routine (04/05/2025 1:46 PM EDT) HEPATITIS A IGM ANTIBODY NON-REACT CARLOS NON-REACT CARLOS 04/06/2025 7:27 AM EDT [facility] HEPATITIS B SURFACE ANTIGEN NON-REACT CARLOS NON-REACT CARLOS 04/06/2025 7:27 AM EDT [facility] HEPATITIS B CORE IGM ANTIBODY NON-REACT CARLOS NON-REACT CARLOS 04/06/2025 7:27 AM EDT [facility] HEPATITIS C ANTIBODY NON-REACT CARLOS NON-REACT CARLOS 04/06/2025 7:27 AM EDT [facility] Blood Blood / Unknown 04/05/2025 1 :46 PM EDT 04/06/2025 5:51 AM EDT [employer] - 04/06/2025 7:48 AM EDT FASTING:YES . HCV antibody was non-reactive. There is no laboratory evidence of HCV infection. . In most cases, no further action is required. However, if recent HCV exposure is suspected, a test for HCV RNA (test code 45554) is suggested. . For additional information please refer to http://education.Nostalgia Bingo/faq/WSQ95m9 (This link is being provided for informational/ educational purposes only.) . . For additional information, please refer to http://mgMEDIA.[place].Dónde/faq/YYS917 (This link is being provided for informational/ educational purposes only.) . us Tremayne Carpenter PA-C LAB - BLOOD DRAW Final Result [facility] [address] [place] [id number], [employer] [address] [address] from Last 3 Months or Most Recently Relevant to Health Maintenance Insurance [facility] [employer] Care Teams Rack Maker Relationship Specialty Start Date End Date Shavon Singh FNP [address] [place] [address] PCP - General Family Medicine, MECHANICAL COMMISSIONING ENGINEER 05/10/25
== END 2025-07-16 10:24 | disposition home or self-care (01) ==
LOC: HO.HOS 09:44
PROVIDERS: Visit Provider Physical Medicine & Rehabilitation
DX: M54.2 Cervicalgia (principal)
CPT/HCPCS: 99213